=== PATIENT | female | born 1960 | race Caucasian/White ===

== ENCOUNTER 2018-02-14 16:07 | Outpatient (CLI) | payer BC | END 2018-02-14 16:08 | disposition home or self-care (01) | LOC: BICMAMMO 16:07 | PROVIDERS: ATTEND Obstetrics & Gynecology | DX: Z12.31 Encounter for screening mammogram for malignant neoplasm of breast (principal) | CPT/HCPCS: 77063; 77067 ==

== ENCOUNTER 2019-02-15 14:37 | Outpatient (CLI) | payer BC ==
--- NOTE | 2019-02-15 15:18 | MMO ---
Bilateral MAMMO Bilat Screen [id number]. CLINICAL HISTORY: Patient is 58 years old and is seen for screening. The patient has no family history of breast cancer. The patient has no personal history of cancer. VIEWS: The views performed were: bilateral craniocaudal with tomosynthesis and bilateral mediolateral oblique with tomosynthesis. FILMS COMPARED: The present examination has been compared to prior imaging studies performed at [facility] on 12/05/2013, 12/07/2014, 12/09/2015, 02/01/2017 and 02/14/2018. MAMMOGRAM FINDINGS: There are scattered fibroglandular densities. There are stable benign appearing calcifications seen in both breasts. There are no suspicious masses, suspicious calcifications, or new areas of architectural distortion. IMPRESSION: THERE IS NO MAMMOGRAPHIC EVIDENCE OF MALIGNANCY. A ROUTINE FOLLOW-UP MAMMOGRAM IN 1 YEAR IS RECOMMENDED. THE RESULTS OF THIS EXAM WERE SENT TO THE PATIENT. ACR BI-RADS Category 2 - Benign finding MAMMOGRAPHY NOTE: 1. A negative mammogram report should not delay a biopsy if a dominant of clinically suspicious mass is present. 2. Approximately 10% to 15% of breast cancers are not detected by mammography. 3. Adenosis and dense breasts may obscure an underlying neoplasm.
== END 2019-02-15 14:38 | disposition home or self-care (01) ==
LOC: BICMAMMO 14:37
PROVIDERS: ATTEND Obstetrics & Gynecology
DX: Z12.31 Encounter for screening mammogram for malignant neoplasm of breast (principal)
CPT/HCPCS: 77063; 77067

== ENCOUNTER 2022-09-29 06:11 | Observation (INO) | payer BC ==
[2022-09-29] MEDS ORDERED: Sodium Chloride 0.9% 100 ML ONE ×2 (06:47→08:56)
[2022-09-29] MEDS ORDERED: Tranexamic Acid 1,000 MG/10 ML VIAL ONE (06:47)
[2022-09-29] MEDS ORDERED: Vancomycin (BATCH) 1.5 GRAM/300 ML BAG ONE (07:17)
[2022-09-29 07:22] LABS: SARS-CoV-2 NAA Rapid Test Not Detected (NotDetected)
[2022-09-29] MEDS ORDERED: Fentanyl 100 MCG/2 ML VIAL ONE (08:35)
[2022-09-29] MEDS ORDERED: Midazolam HCl 2 mg/2 ml Vial ONE (08:35)
[2022-09-29] MEDS ORDERED: Ropivacaine 0.5% HCl/PF (150 MG/30 ML VIAL) ONE (08:36)
[2022-09-29] MEDS ORDERED: Bupivacaine PF 0.5% 30 ML VIAL ONE (08:41)
[2022-09-29] MEDS ORDERED: Fentanyl 250 MCG/5 ML VIAL ONE (08:46)
[2022-09-29] MEDS ORDERED: Lidocaine 2% 6 ML SYR ONE (08:52)
[2022-09-29] MEDS ORDERED: Propofol 1,000 MG/100 ML VIAL IV ONE (08:52)
[2022-09-29] MEDS ORDERED: CEFAZOLIN 2 GM VIAL ONE (08:56)
[2022-09-29] MEDS ORDERED: Dexamethasone 20 MG/5 ML VIAL ONE (09:07)
[2022-09-29] MEDS ORDERED: PROPOFOL 200 MG/20 ML VIAL ONE (09:07)
[2022-09-29] MEDS ORDERED: Ondansetron PF 4 MG/2 ML Vial ONE (09:07)
[2022-09-29] MEDS ORDERED: Promethazine HCl 25 MG/ML VIAL IM PRN ×2 (09:09→10:29)
[2022-09-29] MEDS ORDERED: Ondansetron PF 4 MG/2 ML Vial IVP PRN (09:09)
[2022-09-29] MEDS ORDERED: diphenhydrAMINE 25 MG CAP PO PRN (09:09)
[2022-09-29] MEDS ORDERED: Acetaminophen 325 MG TAB PO PRN (09:09)
[2022-09-29] MEDS ORDERED: Zolpidem Tartrate 5 MG TAB PO PRN (09:09)
[2022-09-29] MEDS ORDERED: Promethazine HCl 25 MG/ML VIAL IVPB PRN (10:29)
[2022-09-29] MEDS ORDERED: Ondansetron HCl/PF 4 MG/2 ML Vial IVP PRN (10:29)
[2022-09-29 12:07] VITALS: BMI 11.2
[2022-09-29] MEDS: Sodium Chloride 0.9% 1,000 ML IV SCH ×2 (12:12→23:43)
[2022-09-29] MEDS: HYDROcodone/Acetaminophen 10/325 mg Tablet PO PRN ×3 (13:51→22:09)
[2022-09-29] MEDS: CEFAZOLIN 2 GM in Sodium Chloride 0.9% 100 ML IVPB SCH (16:11)
[2022-09-29] MEDS ORDERED: Rosuvastatin 20 MG TAB PO SCH (21:00)
[2022-09-29] MEDS ORDERED: Losartan 25 MG TAB PO SCH (21:00)
[2022-09-29] MEDS ORDERED: Senokot S 8.6-50 MG TAB PO SCH (21:00)
[2022-09-29] MEDS: Aspirin 81 mg Enteric Coated Tablet PO SCH (21:16)
[2022-09-29] MEDS: Ferrous Gluconate 324 MG TAB PO SCH (21:16)
[2022-09-30] MEDS: HYDROcodone/Acetaminophen 10/325 mg Tablet PO PRN ×3 (01:37→09:47)
[2022-09-30] MEDS: CEFAZOLIN 2 GM in Sodium Chloride 0.9% 100 ML IVPB SCH (01:39)
[2022-09-30] MEDS: Sodium Chloride 0.9% 1,000 ML IV SCH (06:39)
[2022-09-30 06:45] LABS: Hemoglobin 11.5 g/dL (12.0-16.0); Mean Corpuscular HGB CONC 33.4 g/dL (32.0-36.0); Mean Corpuscular Hemoglobin 29.1 pg (27.0-31.0); Mean Corpuscular Volume 87.2 fl (78.0-98.0); Mean Platelet Volume 9.2 fL (7.4-10.4); Platelet Count 184 10x3/uL (130-400); RBC Distribution Width 13.1 % (11.5-14.5); Red Blood Cell (RBC) Count 3.97 mill/uL (4.20-5.40); White Blood Cell (WBC) Count 10.8 10x3/uL (4.8-10.8)
[2022-09-30 07:37] VITALS: BP 138/81; TEMP 98.4
[2022-09-30] MEDS ORDERED: Hydrocortisone 10 mg Tablet PO SCH (09:00)
[2022-09-30] MEDS ORDERED: Furosemide 40 MG TAB PO SCH (09:00)
[2022-09-30] MEDS ORDERED: Spironolactone 25 MG TAB PO SCH (09:00)
[2022-09-30] MEDS ORDERED: Multivitamin W/ Minerals 1 TAB PO SCH (09:00)
[2022-09-30] MEDS: Ferrous Gluconate 324 MG TAB PO SCH (09:16)
[2022-09-30] MEDS: Aspirin 81 mg Enteric Coated Tablet PO SCH (09:16)
== END 2022-09-30 13:16 | disposition home or self-care (01) ==
LOC: SDC 06:11 → SURG A 11:13
PROVIDERS: ADMIT Orthopaedic Surgery; ATTEND Orthopaedic Surgery
PROC: 0SRB04A Replacement of Left Hip Joint with Ceramic on Polyethylene Synthetic Substitute, Uncemented, Open Approach (ICD-10-PCS; principal; 2022-09-29)
DX: M16.12 Unilateral primary osteoarthritis, left hip (principal); I10 Essential (primary) hypertension; E78.5 Hyperlipidemia, unspecified; G47.30 Sleep apnea, unspecified; Z86.16 Personal history of COVID-19; Z79.52 Long term (current) use of systemic steroids; Z79.899 Other long term (current) drug therapy; Z88.2 Allergy status to sulfonamides; Z88.5 Allergy status to narcotic agent; Z88.6 Allergy status to analgesic agent; Z20.822 Contact with and (suspected) exposure to COVID-19
CPT/HCPCS: 36415; 85027; 96374; 96376; C1776; G0378; J1100; J2250; J2405; J2704; J2795; J3010; J3370; J3490; S0020; U0002